=== PATIENT | male | born 1960 | race Two or more races ===

== ENCOUNTER 2018-04-19 21:50 | Emergency (ER) | payer OTHER ==
[~2018-04-19] VITALS: Ht 172.7 cm; Wt 80.7 kg
[2018-04-19] MEDS ORDERED: NKM (21:59)
[2018-04-19 22:08] VITALS: BP 139/88
--- NOTE | 2018-04-19 22:08 | NUR ---
ED Nurse Note: Pt walked in ER and c/o R armpit has a boil 3~4 days, and it's getting bigger with some pain. Pt is AO x 4times, VSS, on room air no distress. SB parker Pt at bedside.
[2018-04-19] MEDS ORDERED: AUGMENTIN 875-1 EAC1 ORAL (22:32)
[2018-04-19 22:40] VITALS: BP 134/74
--- NOTE | 2018-04-19 22:40 | NUR ---
ED Nurse Note: Pt cleared DC by SB. Pt is AO x 4times, VSS, on room air no distress. DC and Meds instructions given to Pt, Pt understood well. Belongings given to Pt. ID bend removed. Pt walked out unit with steady gait.
--- NOTE | 2018-04-20 02:50 | Emergency Room Report ---
History of Present Illness General Chief Complaint: Skin Rash/Abscess Source: Patient Present Illness HPI 57-year-old male presents ED for evaluation. Presents with 2 bumps in his axilla 4 days. Pain is throbbing, 7 out of 10, nonradiating. Denies fevers or chills. Denies any discharge. No other aggravating relieving factors. Denies any other associated symptoms Patient History Past Medical History: none Past Surgical History: none Pertinent Family History: none Social History: Denies: smoking, alcohol use, drug use Immunizations: UTD Reviewed Nursing Documentation: PMH: Agreed; PSxH: Agreed Nursing Documentation-PMH Past Medical History: No Stated History Review of Systems All Other Systems: negative except mentioned in HPI Physical Exam Vital Signs Date Time Temp Pulse Resp B/P (MAP) Pulse Ox O2 Delivery O2 Flow Rate FiO2 04/19/18 21:56 98.4 71 18 150/89 99 Room Air Sp02 EP Interpretation: reviewed, normal General Appearance: no apparent distress, alert, GCS 15, non-toxic Head: normocephalic Eyes: bilateral eye normal inspection, bilateral eye PERRL ENT: normal ENT inspection Neck: normal inspection Respiratory: normal inspection Cardiovascular #1: normal inspection Gastrointestinal: normal inspection Rectal: deferred Genitourinary: no CVA tenderness Musculoskeletal: back normal, gait/station normal, normal range of motion, non- tender Neurologic: alert, oriented x3, responsive, motor strength/tone normal, sensory intact, speech normal Psychiatric: normal inspection Skin: other - 2 indurated bumps to R axilla. indurated. nonfluctuant Lymphatic: normal inspection Medical Decision Making Diagnostic Impression: Primary Impression: Axillary abscess ER Course Hospital Course 57-year-old male presents to ED with redness, swelling to R axilla Differential diagnoses include: Cellulitis, dermatitis, insect bite, abscess Clinical course Patient placed on stretcher. After initial history, physical exam reveals a middle aged male in no acute distress. On exam there are two erythematous bumps to the right axilla. there is no fluctuance. Nonerythematous base. Discussed findings with patient. Not amenable to I and D at this time. We will attempt conservative therapy with warm compresses and antibiotics. Patient states that he had this many years ago and they did resolve with antibiotics. Safe for discharge with close outpatient follow-up. patient states he has a PMD Diagnosis - axillary abscess stable and discharged to home with prescription for augmentin. warm compresses. Instructed to followup with PMD. Instructed return to ED if symptoms recur or worsen Last Vital Signs Date Time Temp Pulse Resp B/P (MAP) Pulse Ox O2 Delivery O2 Flow Rate FiO2 04/19/18 22:40 98.1 7 18 134/74 99 Room Air Status: improved Disposition: HOME, SELF-CARE Condition: Stable Scripts Amoxicillin/Potassium Clav 875-125* (AUGMENTIN 875-125 TABLET*) 1 Each Tablet 1 TAB ORAL TWICE A DAY, #14 TAB Prov: Marcus Marti MD 04/19/18 Referrals: NOT CHOSEN IPA/,REFERRING (PCP) Patient Instructions: Marcus Aparicio MD Apr 20, 2018 02:50
== END 2018-04-19 22:40 | disposition home or self-care (01) ==
LOC: EMR 22:35
DX: L02.419 Cutaneous abscess of limb, unspecified (principal); M79.629 Pain in unspecified upper arm
CPT/HCPCS: 99282